=== PATIENT | male | born 1985 | race Caucasian/White ===

== ENCOUNTER 2016-08-04 05:43 | Emergency (ER) | payer MEDICAID ==
[~2016-08-04] VITALS: Ht 175.3 cm; Wt 86.2 kg
[~2016-08-04 05:43] MED LIST: DIAZ12.5 RE; LEVE250T18 PO; LEVE500T22 PO; LORA2INJ PO; NOR10T PO; SERT-135 PO
[2016-08-04 06:09] VITALS: BP 134/108
[2016-08-04 06:52] LABS: Basophils # (auto) 0.1 uL; Basophils % (auto) 0.4 % (0.0-2.0); Eosinophils # (auto) 0.2 uL; Eosinophils % (auto) 1.4 % (0.0-7.0); Hematocrit 47.5 % (41.0-53.0); Lymphocytes # (auto) 2.2 uL; Lymphocytes % (auto) 16.5 % (10.0-50.0); Mean Corpuscular Hemoglobin 31.2 pg (28.0-32.0); Mean Corpuscular Hgb Conc. 33.7 g/dL (32.0-36.0); Mean Corpuscular Volume 92.5 fL (80.0-100.0); Mean Platelet Volume 10.6 fL (7.4-10.4); Monocytes # (auto) 1.2 uL; Monocytes % (auto) 8.6 % (0.0-12.0); Neutrophils # (auto) 9.8 uL; Neutrophils % (auto) 73.1 % (37.0-80.0); Platelet Count (auto) 187 10^3/uL (140-450); Red Cell Distribution Width 13.4 % (11.6-16.0); White Blood Cell 13.4 10^3/uL (4.4-10.8)
[2016-08-04 06:53] LABS: Albumin 4.2 g/dL (3.4-5.0); BUN/Creatinine Ratio 8.1; Bilirubin, Total 0.3 mg/dL (0.2-1.0); Calcium 9.2 mg/dL (8.5-10.1); Potassium 4.3 mmol/L (3.5-5.1); Total Protein 8.1 g/dL (6.4-8.2)
[2016-08-04 08:42] LABS: INR 0.99 (0.9-1.15); Prothrombin Time 10.7 sec (9.37-12.3)
== END 2016-08-04 09:13 | disposition home or self-care (01) ==
LOC: EDBD 05:43 → ER 05:43
DX: G40.909 Epilepsy, unspecified, not intractable, without status epilepticus (principal); R53.1 Weakness; F17.210 Nicotine dependence, cigarettes, uncomplicated; F15.10 Other stimulant abuse, uncomplicated; Z88.6 Allergy status to analgesic agent; Z88.9 Allergy status to unspecified drugs, medicaments and biological substances; Z91.041 Radiographic dye allergy status; Z79.899 Other long term (current) drug therapy
CPT/HCPCS: 36415; 71010; 80053; 82542; 85025; 85610; 85730; 93005